=== PATIENT | female | born 1990 | race American Indian/Alaskan Native ===

== ENCOUNTER 2017-03-25 21:19 | Inpatient (IN) | payer MEDICAID ==
[2017-03-25] MEDS ORDERED: LACTATED RINGERS 1,000 ML ONE (22:05)
[2017-03-25] MEDS ORDERED: LACTATED RINGERS 1,000 ML IV ONE (22:05)
--- NOTE | 2017-03-26 00:32 | Ultrasound Report ---
FINAL REPORT EXAM: US OB BPP WO NON-STRESS HISTORY: DECELERATIONS TECHNIQUE: A limited OB sonogram was obtained for a biophysical profile. FINDINGS: For breathing movements, a score of 2 out of 2 was obtained. For movements, a total score of 2 out of 2 was obtained. For posterior in tone, a total score of 2 out of 2 was obtained. For qualitative amniotic fluid volume, a total score of 2 out of 2 was obtained. The total biophysical profile score is 8 out of 8. The heart rate is 145 BPM. IMPRESSION: Biophysical profile score of 8 out of 8. heart is 145 BPM.
[2017-03-26] MEDS ORDERED: COLACE PO PRN (00:51)
[2017-03-26] MEDS ORDERED: TYLENOL PO PRN (00:51)
[2017-03-26] MEDS ORDERED: LACTATED RINGERS 1,000 ML IV SCH (01:00)
--- NOTE | 2017-03-26 03:45 | History and Physical Report ---
History of Present Illness Date of examination: 03/26/17 Date of admission: 03/26/17 00:57 Chief complaint: Painful contractions History of present illness: 26-year-old at 38 weeks presents with painful contractions all day long, she is a drop-in patient with care with Dr. arti Otoole. [facility] unremarkable per patient. In triage, patient noted to have intermittent variable decelerations. BPP 8 out of 8 She denies loss of fluid, vaginal bleeding plus movement Her cervix is 1 cm and has remained unchanged Past History Past Medical History: no pertinent history Past Surgical History: no surgical history [employer] History: chlamydia. denies: cancer, fibroids, gonorrhea, hepatitis B, hepatitis C, herpes, HIV, syphilis, trichomonas Social history: single, full code. denies: Lives alone, lives with family, smoking, alcohol abuse, prescription drug abuse, IV drug use - Obstetrical History Expected Date of Delivery: 04/06/17 Actual Gestation: 38 Week(s) 3 Day(s) : 4 Para: 1 Medications and Allergies Allergies Allergy/AdvReac Type Severity Reaction Status Date / Time No Known Allergies Allergy Verified 03/25/17 21:40 Home Medications Medication Instructions Recorded Confirmed Last Taken Type Tablet 1 tab PO DAILY 03/26/17 03/26/17 1 Day Ago History ~03/25/17 Active Meds: Active Medications Acetaminophen (Tylenol) 650 mg PO Q4H PRN PRN Reason: Pain MILD(1-3)/Fever >100.5/HERBERT Docusate Sodium (Colace) 100 mg PO Q12H PRN PRN Reason: Constipation Lactated Ringer's (Lactated Ringers) 1,000 mls @ 125 mls/hr IV DIRECT JENNIFER Multivitamins/Iron/Calcium ( Vitamin) 1 each PO QDAY [facility] Review of Systems Constitutional: no fever, no chills, no malaise Cardiovascular: no chest pain, no orthopnea, no palpitations, no edema, no lightheadedness, no shortness of breath, no dyspnea on exertion Respiratory: no cough, no shortness of breath, no dyspnea on exertion Gastrointestinal: no abdominal pain, no nausea, no vomiting Genitourinary: contractions, no vaginal bleeding, no vaginal discharge - Vital Signs Vital signs: Vital Signs Temp Pulse BP 97.8 F 93 H 102/59 03/25/17 21:38 03/25/17 21:38 03/25/17 21:38 Temp Pulse Resp BP Pulse Ox 97.8 F 70 84/48 97 03/25/17 21:38 03/26/17 03:37 03/26/17 03:37 03/26/17 00:31 - Physical Exam Cardiovascular: Regular rate Lungs: Positive: Clear to auscultation, Normal air movement Abdomen: Positive: normal appearance, soft. Negative: distention, tenderness, guarding, rigidity Uterus: Positive: enlarged (Unable to estimate EFW due to maternal habitus. Has oral hx os sono 6 wks ago was ~ 6lbs). Negative: tender Extremities: Positive: normal - Obstetrical FHR: category 1 (No variables at this time) Cervical Dilatation: 1 (Per RN exam) Results All other labs normal. Assessment and Plan A: 26-year-old at 38+3 weeks with Cat 2 tracing -Resolved at this time P: -Admit for observation -IV hydration -Repeat RITA and BPP later this morning -Disposition after peroid of observation & work-up - Patient Problems (1) 38 weeks gestation of Current Visit: Yes Status: Acute
[2017-03-26 04:20] LABS: Hematocrit 40.3 % (30.3-42.9); Hemoglobin 13.4 gm/dl (10.1-14.3); Mean Corpuscular HGB Conc 33 % (30-34); Mean Corpuscular Hemoglobin 27 pg (28-32); Mean Corpuscular Volume 83 fl (79-97); Platelet Count 264 K/mm3 (140-440); Red Blood Count 4.88 M/mm3 (3.65-5.03); Red Cell Distribution Width 14.5 % (13.2-15.2)
[2017-03-26 04:56] LABS: Alanine Aminotransferase 8 units/L (7-56); Albumin 3.8 g/dL (3.9-5); BUN/Creatinine Ratio 18; Blood Urea Nitrogen 9 mg/dL (7-17); Calcium 8.9 mg/dL (8.4-10.2); Hemolysis Index 53
[2017-03-26 05:28] LABS: Amphetamine Screen,Urine PRESUMPTIVE NEGATIVE; Benzodiazepines Screen,Urine PRESUMPTIVE NEGATIVE; Cannabinoid Screen,Urine PRESUMPTIVE NEGATIVE; Cocaine Screen,Urine PRESUMPTIVE NEGATIVE; Methadone Screen,Urine PRESUMPTIVE NEGATIVE; Opiate Screen,Urine PRESUMPTIVE NEGATIVE
--- NOTE | 2017-03-26 08:48 | Event Note ---
Date: 03/26/17 S: Feels good, report no contractions, wants to eat O; Cat I tracing A: IUP @ 38.4 weeks, few decelerations on admission Dehydration P; Decelerations resolving with IV Fluids Repeat BPP and RITA today Regular diet
[2017-03-26] MEDS ORDERED: PRENATAL VITAMIN PO SCH (10:00)
--- NOTE | 2017-03-26 11:37 | Ultrasound Report ---
ULTRASOUND BIOPHYSICAL PROFILE: History: well being Technique: Transabdominal ultrasound with Doppler interrogation. 2 - breathing movements 2 - movements 2 - posture and tone 2 - Qualitative amniotic fluid volume 8 - TOTAL SCORE OF POSSIBLE 8 Heart Rate (bpm) 148
--- NOTE | 2017-03-26 11:37 | Ultrasound Report ---
ULTRASOUND OB LIMITED History: well being Technique: Transabdominal ultrasound with Doppler interrogation. Gestation: Single Position: Cephalic Amniotic Fluid: Low normal RITA = 7.1 cm Heart Rate: 148 BPM
[2017-03-26 13:15] VITALS: BP 86/49
--- NOTE | 2017-03-26 13:32 | Event Note ---
Date: 03/26/17 Patient has a more decelerations. BPP 8 out of 8 but RITA is low normal at ~ 7. Advised patient we should proceed with delivery at this time, advised that there is an increased possibility of having to perform a . Patient called her physician, Dr. Otoole. It appears she was advised to be discharged AMA and to follow up at [facility] [place].
== END 2017-03-26 14:30 | disposition left against medical advice (07) | DRG 782 ==
LOC: TRG 21:19 → LD 03-26 00:57 → OBSVTOIN 03-26 10:13
PROVIDERS: ADMIT Obstetrics & Gynecology; ATTEND Obstetrics & Gynecology
DX: O76 Abnormality in fetal heart rate and rhythm complicating labor and delivery (principal); Z53.21 Procedure and treatment not carried out due to patient leaving prior to being seen by health care provider; Z3A.38 38 weeks gestation of pregnancy
CPT/HCPCS: 36415; 76815; 76819; 80053; 80307; 82962; 85027; 86850; 86900; 86901; 87806; J7120